=== PATIENT | female | born 1965 | race Caucasian/White ===

== ENCOUNTER 2023-02-17 07:50 | Day surgery (SDC) | payer OTHER ==
[~2023-02-17] VITALS: Ht 157.5 cm; Wt 62.6 kg
[2023-02-17] MEDS ORDERED: MIDAZOLAM HCL 5 MG/5 ML VIAL ONE ×2 (09:53→10:44)
[2023-02-17] MEDS ORDERED: MEPERIDINE 100 MG INJ. 100 MG/ML VIAL ONE (09:53)
[2023-02-17 12:39] VITALS: O2SAT 99
[2023-02-17 16:29] VITALS: BP_SYST 122; PULSE 75; RESP 11
== END 2023-02-17 11:55 | disposition home or self-care (01) ==
LOC: SDS 07:50 → SMU 07:51 → SDS 11:55
PROVIDERS: ATTEND Internal Medicine Gastroenterology
DX: Z12.11 Encounter for screening for malignant neoplasm of colon (principal); K63.5 Polyp of colon; K62.1 Rectal polyp; K21.9 Gastro-esophageal reflux disease without esophagitis; K59.09 Other constipation; K64.9 Unspecified hemorrhoids; F41.9 Anxiety disorder, unspecified; E11.9 Type 2 diabetes mellitus without complications; E78.5 Hyperlipidemia, unspecified; E03.9 Hypothyroidism, unspecified; M19.90 Unspecified osteoarthritis, unspecified site; Z90.49 Acquired absence of other specified parts of digestive tract; Z79.899 Other long term (current) drug therapy
CPT/HCPCS: 45380; 43239; 99152; 87081; 82962; 36415; 88305; 88312; 88313; 99153; G0378; J2250; J2175